=== PATIENT | female | born 1980 | race Asian ===

== ENCOUNTER 2019-01-18 18:30 | Emergency (ER) | payer BC ==
[~2019-01-18] VITALS: Ht 160 cm; Wt 63.0 kg
[2019-01-18 23:05] VITALS: BP 119/79
== END 2019-01-18 23:05 | disposition home or self-care (01) ==
LOC: ER 18:30
DX: J06.9 Acute upper respiratory infection, unspecified (principal); Z98.890 Other specified postprocedural states
CPT/HCPCS: 71045; 81025; 99283